=== PATIENT | male | born 1960 | race Caucasian/White ===

== ENCOUNTER 2016-12-14 11:53 | Inpatient (IN) | payer MEDICAID, OTHER ==
[~2016-12-14] VITALS: Ht 175.3 cm; Wt 66.2 kg
[2016-12-14] VITALS (8 sets, daily range): BP systolic 117–133; BP diastolic 62–81; PULSE 82–99; RESP 12–19; O2SAT 95–100
[2016-12-14] MEDS ORDERED: Thiamine Inj 100 MG, Folic Acid Inj 1 MG, Magnesium Sulfate 50% Inj 2 GM, Multivitamins... IV ONE ×5 (12:15)
--- NOTE | 2016-12-14 12:25 | ED.REPORT ---
HPI-General Illness Date of Service Dec 14, 2016 ED Provider: Adolfo Ramirez MD Patient is a 56 year old male who presents to the ED via EMS from [facility] complaining of EtOH withdrawal, dehydration, and incontinence. Patient is court ordered to the [facility] for EtOH abuse and his last drink was 2 days ago. When asked how much he normally drinks he states "about six." Unspecified allergy to lorazepam found in records. Patient is unable to give a reliable hx Per Dr Acuna,, N doctor, pt was incoherent and incontinent. PMH largely unknown, EtOH and possibly drug abuse, COPD Nursing Notes Chief Complaint: Substance Abuse Nursing Notes Reviewed: Yes Allergies: Coded Allergies: lorazepam (Verified Allergy, Unknown, 12/14/16) Scheduled B Complex with Vitamin C (Vitamin B-Complex & C) 1 Each Tablet.er 1 EACH PO DAILY Divalproex ER (Depakote ER) 500 Mg Tablet 500 MG PO BID Swallowed whole without chewing to avoid local irritation of the mouth and throat. Folic Acid (Folic Acid) 1 Mg Tablet 1 MG PO DAILY Scheduled PRN Loratadine ODT (Claritin ODT) 5 Mg Tablet 10 MG PO DAILY PRN PRN ALLERGIES General Time Seen by MD: 12:15 Chief Complaint Other (EtOH Withdrawal) Hx Obtained From: Patient, EMS Arrived By: Ambulance Onset Occurred: Onset unknown Past Medical History Past Medical History HTN Reports: COPD Smoking History Unknown if Ever Smoker Social History EtOH abuse, reportedly lives in [place] and sent to [facility] for long-term treatment. Unable to Obtain History Past medical history, Past surgical history, Family history, Smoking history, Social history, Occupation Review of Systems Unable to Obtain ROS Patient condition Physical Exam CIWA 11. Incont of urine prior to arrival. Vital Signs Vital Signs Date Time Temp Pulse Resp B/P Pulse Ox O2 Delivery O2 Flow Rate FiO2 12/14/16 18:02 89 16 131/66 96 Room Air 12/14/16 14:02 90 14 129/71 98 12/14/16 12:14 36.3 95 15 131/75 100 Room Air 12/14/16 12:08 36.7 94 12 131/75 99 Room Air Initial VS: Reviewed, Vital signs normal Head / Eyes: Atraumatic, Normocephalic Neck: Full range of motion Respiratory: No respiratory distress Cardiovascular: Regular rate & rhythm Abdomen / GI: Soft, Non-tender Extremities: Vascular intact, Neuro intact Skin: Warm, Dry Neurologic: Alert, Nonfocal General/Constitutional: Awake Tremulous, difficult historian Abdomen: Soft, Non-tender Does not appear to have ascites Neurologic: Speech NL Mental Status: Positive: Disoriented to place, Somnolent No focal neurologic deficits Interpretation & Diagnostics Lab Results Interpretation Result Diagram: 12/14/16 1350 12/14/16 1350 Test 12/14/16 12:00 12/14/16 13:50 12/14/16 14:00 12/14/16 16:48 Hold Urine Received (Received) White Blood Count 5.9th/mm3 (3.8-10.1) Red Blood Count 4.63mil/mm3 (4.40-5.80) Hemoglobin 14.5g/dL (13.8-17.2) Hematocrit 41.6% (41.0-50.0) Mean Corpuscular Volume 89.8fL (81-100) Mean Corpuscular Hemoglobin 31.3pg (27.0-35.0) Mean Corpuscular Hemoglobin Concent 34.9% (32.0-37.0) Red Cell Distribution Width 14.4% (12.3-15.4) Platelet Count 114bil/L (150-400) Neutrophils (%) (Auto) 59.5% (40-74) Lymphocytes (%) (Auto) 17.3% (14-46) Monocytes (%) (Auto) 16.4% (4-12) Eosinophils (%) (Auto) 5.6% (0-5) Basophils (%) (Auto) 0.5% (0-3) Sodium Level 133mEq/L (134-144) Potassium Level 3.6mEq/L (3.5-5.2) Chloride Level 91mEq/L (97-108) Carbon Dioxide Level 21mmol/L (18-29) Blood Urea Nitrogen 9mg/dL (6-24) Creatinine 0.42mg/dL (0.76-1.27) Estimat Glomerular Filtration Rate 223mL/min (>59) Glucose Level 87mg/dL (60-99) Calcium Level 9.8mg/dL (8.5-10.1) Total Bilirubin 1.1mg/dL (0.0-1.2) Aspartate Amino Transf (AST/SGOT) 36U/L (0-50) Alanine Aminotransferase (ALT/SGPT) 30U/L (0-44) Alkaline Phosphatase 103U/L (25-150) Total Protein 7.6g/dL (6.4-8.4) Albumin 3.9g/dL (3.4-5.0) Lipase 24U/L (13-60) Alcohols < 10mg/dL (0-10) Hold Purple Top Tube Received (Received) Prothrombin Time 10.0sec (8.1-12.5) Prothromb Time International Ratio 0.94ratio Hold Blue Top Tube Received (Received) Hold Red Top Tube Received (Received) Hold Mays Top Tube Received (Received) Valproic Acid (Depakene) Level 25ug/mL (50-125) Ammonia 66ug/dL (18-53) Re-Eval/Medical Decision Med Decision/Clinical Course 56-year-old male with a significant history of alcohol abuse. Sent from [facility] secondary to confusion tremors concern for dehydration. Patient appears to be to confused and unable to care for himself for that environment. I noted a history of reported nonspecific allergy to lorazepam however with a CIWA score of 11 to get a single dose of IV diazepam which she tolerated. Tremors are improved, he is somnolent but arousable. Ammonia is mildly elevated, we will start lactulose and order coagulation studies. Time of Eval: 17:41 Re-Evaluation/Progress Note: Somonlent, arouses to voice. Consultation : Referral / Consult Name: Beckie Portillo DO Consulted With: Hospitalist Material Expeditor: Accepts admit Discharge & Departure Primary Impression: Alcohol withdrawal Complication of substance-induced condition: with delirium Qualified Code: F10.231 - Alcohol dependence with withdrawal delirium Disposition: ADMITTED TO HOSPITAL Scribe Attestation Portions of this note were transcribed by La Frey. I, Dr. Ramirez personally performed the history, physical exam and medical decision-making; I reviewed and confirmed the accuracy of the information in the transcribed note. Signed by: La Frey 12/14/16, 1517 Adolfo Ramirez MD Dec 14, 2016 12:25 LA FREY Dec 14, 2016 13:01
[2016-12-14 14:05] LABS: BASOPHILS % (AUTO) 0.5 % (0-3); EOSINOPHILS % (AUTO) 5.6 % (0-5); MONOCYTES % (AUTO) 16.4 % (4-12); Mean Corpuscular Hemoglobin 31.3 pg (27.0-35.0); Mean Corpuscular Volume 89.8 fL (81-100); NEUTROPHILS % (AUTO) 59.5 % (40-74); Platelet Count 114 bil/L (150-400)
[2016-12-14 14:36] LABS: Lipase 24 U/L (13-60)
--- NOTE | 2016-12-14 17:24 | DRSVH ---
PROCEDURE: CT BRAIN WITHOUT CONTRAST ([id number]) INDICATIONS: decreased mental status TECHNIQUE: Noncontrast 4.5 mm thick angled axial sections acquired from the foramen magnum to the vertex, with c oronal reformats. COMPARISON: None. FINDINGS: Image quality: Excellent. CSF spaces: Basal cisterns are patent. No extra-axial fluid collections. The ventricles are symmet maxi in size and shape. Brain: No intracranial bleeds or masses. There is marked cerebral volume loss for age, with resulta nt ventricular and sulcal prominence. There are extensive periventricular and deep white matter benchroom shop optician jennifer small vessel ischemic changes for patient age. There is intracranial internal carotid artery ath erosclerosis. Skull and face: Calvarium and visualized facial bones appear intact, without suspicious lesions. Sinuses: Visualized sinuses and mastoids are clear. IMPRESSION: 1. No acute intracranial findings. 2. Marked volume loss and deep white matter changes greater than expected for patient age, likely ass ociated with microvascular ischemia. Dictated by: Giovanna Mccabe M.D. on 12/14/2016 at 17:21 Approved by: Giovanna Mccabe M.D. on 12/14/2016 at 17:23
[2016-12-14] MEDS ORDERED: Lactulose 20 Gm/30 mL 30 mL Syrup PO ONE (17:45)
[2016-12-14] MEDS ORDERED: VITA1TAB47 PO (17:51)
[2016-12-14] MEDS ORDERED: LORA5TAB8 PO (17:51)
[2016-12-14] MEDS ORDERED: FOLI1TAB18 PO (17:51)
[2016-12-14] MEDS ORDERED: DEP500A PO (17:51)
[2016-12-14] MEDS ORDERED: DEP500ER PO (17:52)
[2016-12-14 18:02] LABS: INR 0.94 ratio
[2016-12-14] MEDS ORDERED: Alum-Mag Hydrox-Simeth 30 mL Suspension PO PRN ×2 (18:20→19:45)
[2016-12-14] MEDS ORDERED: Ondansetron 2 mg/mL 2 mL Inj IVPUSH PRN ×2 (18:20→19:45)
[2016-12-14 18:24] LABS: APPEARANCE,URINE CLEAR (CLEAR,HAZY); COLOR,URINE DARK YELLOW (YELLOW); OCCULT BLOOD,URINE NEGATIVE (NEGATIVE); PH,URINE 6.5 (5.0-8.0)
--- NOTE | 2016-12-14 18:33 | DRSVH ---
PROCEDURE: X-RAY CHEST ONE VIEW, PORTABLE ([id number]) INDICATIONS: confusion, alcohol withdrawal TECHNIQUE: One view of the chest was acquired. COMPARISON: None. FINDINGS: Surgical changes and devices: None. Lungs and pleura: No pleural effusions or pneumothorax. Lungs are clear. Mediastinum: Mediastinal contours appear normal. Heart size is normal. Bones and chest wall: No suspicious bony lesions. Overlying soft tissues appear unremarkable. IMPRESSION: No acute cardiopulmonary findings. Dictated by: Giovanna Mccabe M.D. on 12/14/2016 at 18:32 Approved by: Giovanna Mccabe M.D. on 12/14/2016 at 18:32
[2016-12-14] MEDS ORDERED: Polyethylene Glycol (PEG) 17 Gm Powder PO PRN (19:45)
[2016-12-14] MEDS: 0.9% Sodium Chloride 1,000 ML IV SCH (21:30)
--- NOTE | 2016-12-14 23:24 | PCM.HPMED ---
Subjective Date of Service Dec 14, 2016 Primary Provider: Admitting Physician: Siva Fernando MD Primary Care Physician: [facility] Attending Physician: Siva Fernando MD Chief Complaint: Alcohol withdrawal History of Present Illness: Willy Pace is a 56 year old man with past medical history significant for rheumatoid arthritis and alcoholism who presented to the [facility] ED from [facility] rehabilitation due to worsening mental status. Patient is currently altered and unable to give a good comprehensive history. Per report the patient was seen by Dr. Acuna reported that the patient was incoherent and incontinent of urine. Patient appeared ill and needed to be evaluated on an inpatient hospital-based setting. There is some mention of an allergy to lorazepam however the patient is unable to clarify this allergy. Per report the patient's last drink was 2 days ago. In the emergency department his vital signs were stable. He was treated with 5 mg of Valium and given a banana bag. Review of Systems: A comprehensive review systems could not be performed due to the patient's altered mental status. Allergies Coded Allergies: lorazepam (Verified Allergy, Unknown, 12/14/16) Home Medications ED report: Depakote 500 mg by mouth twice a day Folic acid B complex PMH Hypertension COPD Rheumatoid arthritis Alcohol abuse Surgical History Unable to obtain due to patient's altered mentation Family History Unable to obtain due to patient's altered mentation Social History Hx Alcohol Use: Yes Hx Tobacco Use: Yes Smoking Status: Current Every Day Smoker Exam Vital Signs Vital Sign - Last Date Time Temp Pulse Resp B/P Pulse Ox O2 Delivery O2 Flow Rate FiO2 12/14/16 19:46 99 12/14/16 19:44 39.9 19 133/81 97 Room Air Exam General: Disheveled man appearing stated age in a hospital bed in no acute distress HEENT: Normocephalic, atraumatic. External ears without defect. Pupils equal, round, and reactive to light and accommodation. Anicteric sclerae, moist conjunctivae, and no lid lag. Oropharynx free of erythema and cobble stoning with moist mucosa. Neck: Supple with full range of motion. No jugular venous distension. No bruits. No lymphadenopathy or thyromegaly. Cardiovascular: Regular rate and rhythm with no murmurs, rubs, or gallops appreciated Pulmonary: Clear to auscultation bilaterally with no crackles, wheezes, or rhonchi. Normal respiratory effort with no use of accessory muscles. Abdomen: Bowel tones present. Soft, mildly tender diffusely, nondistended. No hepatosplenomegaly or masses appreciated. Extremities: Clubbing of bilateral hands, with notable erythema and edema of bilateral hands left slightly worse than right. Per patient this is chronic for him and he has had this for several years. Skin: Normal temperature, turgor, and texture; no rash, ulcers, or subcutaneous nodules appreciated. Neurological: Cranial nerves grossly intact. Able to do a thorough neurological assessment due to patient's altered mental status Psychiatric: Flat affect, oriented to self but not to situation. Lab and Diagnostics Result Diagram: 12/14/16 1350 12/14/16 1350 X-Rays, CTs and MRIs CT BRAIN WITHOUT CONTRAST IMPRESSION: 1. No acute intracranial findings. 2. Marked volume loss and deep white matter changes greater than expected for patient age, likely associated with microvascular ischemia. Dictated by: Giovanna Mccabe M.D. on 12/14/2016 at 17:21 X-RAY CHEST ONE VIEW, PORTABLE IMPRESSION: No acute cardiopulmonary findings. Dictated by: Giovanna Mccabe M.D. on 12/14/2016 at 18:32 Assessment & Plan Willy Pace is a 56 year old man with past medical history significant for rheumatoid arthritis and alcoholism who presented to the [facility] ED from [facility] rehabilitation due to worsening mental status. Alcohol withdrawal, present on admission, active - Given banana vein the ED. - Continue daily thiamine supplementation - Initiate patient on CIWA protocol - paste worker consultation in a.m. - Nothing by mouth while encephalopathic Seizure disorder present on admission, active - Patient is on Depakote chronically so we will continue that we will try to establish a history. CODE STATUS: Full code Patient is admitted under inpatient status with expected length of stay greater than 2 midnights due to severity of presenting symptoms, risk of adverse event, and complexity of treatment plan. Beckie Portillo DO Dec 14, 2016 22:18
[2016-12-14] MEDS: Heparin 5,000 Unit/mL Inj SUBQ SCH (23:46)
--- NOTE | 2016-12-15 05:57 | NUR ---
Admit Pt arrived to [facility] from ED. Pt very drowsy, but able to arouse. Pt states he is wheelchair at baseline and is unable to walk and does not know why. Pt was slid from gurney to bed. Skin check performed, med rec completed by admit nurse, admission completed, Pt A&O x3, CIWA of 11, 5mg Valium given. Pt appropriate and cooperative with care. VSS and Tele SR
[2016-12-15 09:45] VITALS: BP 136/83; PULSE 79; RESP 18; O2SAT 96
[2016-12-15] MEDS: Multivit-Miner-Folic Acid-Iron Tablet PO SCH (10:14)
[2016-12-15] MEDS: Divalproex (QD) 500 mg ER24 Tablet PO SCH ×2 (10:14→20:44)
[2016-12-15] MEDS: 0.9% Sodium Chloride 1,000 ML IV SCH ×2 (10:15→20:44)
[2016-12-15] MEDS: Thiamine Inj 100 MG in 0.9% Sodium Chloride 100 ML IV SCH (10:15)
[2016-12-15] MEDS: Heparin 5,000 Unit/mL Inj SUBQ SCH ×2 (10:15→16:58)
[2016-12-15 10:22] VITALS: PULSE 80
[2016-12-15 12:38] VITALS: BP 129/84; PULSE 81; RESP 18; O2SAT 98
--- NOTE | 2016-12-15 12:52 | PCM.PNMED ---
Subjective Date of Service Dec 15, 2016 Subjective Patient was on CIWA protocol pt was drowsy, but interactive AAOX2, doesn't know why he is in the hospital. c/o chill, denied fever, cough, sputum, diarrhea mildly anxious. v/s noted fever 39.9at 8pm last night, no more fever Exam Vital Signs Vital Sign - Last Date Time Temp Pulse Resp B/P Pulse Ox O2 Delivery O2 Flow Rate FiO2 12/15/16 10:22 80 12/14/16 23:28 36.8 18 130/80 95 Room Air Intake and Output 12/14/16 12/14/16 12/15/16 Cumulative From/Thru 15:00 23:00 07:00 12/14/16 12:05 - 12/15/16 06:04 Intake Total 1635 ml 1635 ml Output Total 650 ml 375 ml 1025 ml Balance -650 ml 1260 ml 610 ml Intake Oral 200 ml 200 ml IV Total 1435 ml 1435 ml Output Urine Total 650 ml 375 ml 1025 ml # Voids 1 1 # Bowel Movements 0 0 Exam NAD, comfortably laying down on the bed mild tongue fasciculation, mild tremors on extended arms no JVD, MMM, no LAD RRR, nl s1, s2 no mrg CTAB, no w,c S,ND,NT,normoactive BS+ warm, no edema, pulses 2/2 IVs and Medications Medications Reviewed: Medications were reviewed in detail Lab and Diagnostics Result Diagram: 12/14/16 1350 12/14/16 1350 X-Rays, CTs and MRIs CT BRAIN WITHOUT CONTRAST IMPRESSION: 1. No acute intracranial findings. 2. Marked volume loss and deep white matter changes greater than expected for patient age, likely associated with microvascular ischemia. Dictated by: Giovanna Mccabe M.D. on 12/14/2016 at 17:21 X-RAY CHEST ONE VIEW, PORTABLE IMPRESSION: No acute cardiopulmonary findings. Dictated by: Giovanna Mccabe M.D. on 12/14/2016 at 18:32 Assessment & Plan Willy Pace is a 56 year old man with past medical history significant for rheumatoid arthritis and alcoholism who presented to the [facility] ED from [facility] rehabilitation due to worsening mental status. Alcohol withdrawal, present on admission, active, -minimal CIWA score, no autonomic instability, no seizures observed -s/p bnana vein the ED, continue oral hydration liberally - Continue daily thiamine supplementation - Initiate patient on CIWA protocol acute encephalopathy, POA, metabolic with etoh WD/intoxication -AAOx2, seems at baseline MS, pt cannot remember the details -neurochecks q4h, if any changes with high fever, consider FUNERAL WORKERS infection Episode of fever, 39.9 on 12/14, no clear source of infection, will get BCX today , monitor fever curve, Seizure disorder present on admission, active, - Patient is on Depakote chronically, resume 500mg bid CODE STATUS: Full code dispo: likely 1-2more days, back to [facility] rehabilitation Time spent 35min Nan Rizvi MD Dec 15, 2016 11:14
--- NOTE | 2016-12-15 15:00 | NUR ---
Social Work Note: Screen Note/Multidisciplinary Rounds Data& Assessment: EMR reviewed. Pt was discussed in AM rounds. Per MD pt is not medically ready for discharge at this time. Pt is going through withdrawal from ETOH. Willy Pace is a 56 year old male admitted on 12/14/2016 for ETOH w/d. Per ED summary notes, pt was sent from [facility] inpt rehab where he was there for court ordered treatment. Pt is originally from [place] and goes to the [facility] clinic for primary care. Pt has VA insurance coverage with [facility] Medicaid supplement. SW to follow up with [facility] inpt rehab to coordinate pt return. SW to continue to follow. Plan: Anticipated discharge back to [facility] intpt rehab pending medical clearance from ETOH withdrawal. SW to follow up with [facility] inpt rehab to coordinate pt return. SW to continue to follow. KASANDRA Cueva
[2016-12-15 16:08] VITALS: BP 139/86; PULSE 83; RESP 19; O2SAT 98
--- NOTE | 2016-12-15 19:52 | NUR ---
Mentation/Drowsy pt this am was very drowsy, demanding to leave him alone. Able to wake pt up a little more, and assess him. Pt Alert to self, knows he is in a hospital and knows month and year however unable to tell me the date. Pt reoriented to time and place. Ciwa score has been 1-2 through the day. Report given to oncoming RN.
[2016-12-15 20:37] VITALS: BP 125/80; PULSE 73; PULSE 81; RESP 18; O2SAT 97
[2016-12-15 23:43] VITALS: BP 137/79; PULSE 71; RESP 18; O2SAT 96
[2016-12-16] VITALS (9 sets, daily range): BP systolic 142–176; BP diastolic 84–98; PULSE 68–84; RESP 16–19; O2SAT 96–99
[2016-12-16] MEDS: 0.9% Sodium Chloride 1,000 ML IV SCH (01:42)
[2016-12-16 03:15] LABS: BASOPHILS % (AUTO) 1.6 % (0-3); EOSINOPHILS % (AUTO) 3.9 % (0-5); Mean Corpuscular Hemoglobin 31.2 pg (27.0-35.0); Mean Corpuscular Volume 92.4 fL (81-100); NEUTROPHILS % (AUTO) 23.3 % (40-74); Platelet Count 108 bil/L (150-400)
[2016-12-16 04:32] LABS: Magnesium 1.4 mg/dL (1.6-2.6); Phosphorus 3.8 mg/dL (2.5-4.9)
--- NOTE | 2016-12-16 04:47 | NUR ---
LOC/CIWA Pt oriented to self, place but can be forgetful of date and times. He needs some reorientation with understanding noted. He was awake and able to express needs and wants. He gets anxious especially about getting his Physical therapy "rehabilitation" getting done. CIWA 4-5. Telemetry SR in 70s.
[2016-12-16] MEDS ORDERED: Magnesium Sulf 2 Gm/50mL Water 2 GM in IV Premix 1 EACH IV ONE ×2 (04:55→07:15)
[2016-12-16] MEDS: Divalproex (QD) 500 mg ER24 Tablet PO SCH ×2 (08:36→21:04)
[2016-12-16] MEDS: Multivit-Miner-Folic Acid-Iron Tablet PO SCH (08:36)
[2016-12-16] MEDS: Heparin 5,000 Unit/mL Inj SUBQ SCH ×4 (08:37→23:52)
[2016-12-16] MEDS: Thiamine Inj 100 MG in 0.9% Sodium Chloride 100 ML IV SCH (08:37)
--- NOTE | 2016-12-16 11:01 | PCM.PNMED ---
Subjective Date of Service Dec 16, 2016 Subjective pt is more lucid and conversive today, AAOx3, cannot remember what happened yesterday CIWA2 this AM, still has mild tremors denied WILD, n,v AH,VH Exam Vital Signs Vital Sign - Last Date Time Temp Pulse Resp B/P Pulse Ox O2 Delivery O2 Flow Rate FiO2 12/16/16 08:45 19 12/16/16 08:43 36.7 73 152/98 97 Room Air Intake and Output 12/15/16 12/15/16 12/16/16 Cumulative From/Thru 15:00 23:00 07:00 12/14/16 12:05 - 12/16/16 05:37 Intake Total 1996 ml 1813 ml 5444 ml Output Total 600 ml 1900 ml 3525 ml Balance 1396 ml -87 ml 1919 ml Intake Oral 720 ml 900 ml 1820 ml IV Total 1276 ml 913 ml 3624 ml Output Urine Total 600 ml 1900 ml 3525 ml # Voids 1 # Bowel Movements 0 0 0 Exam NAD, comfortably laying down on the bed very mild tremors on extended arms no JVD, MMM, no LAD RRR, nl s1, s2 no mrg CTAB, no w,c S,ND,NT,normoactive BS+ warm, no edema, pulses 2/2 IVs and Medications Medications Reviewed: Medications were reviewed in detail Lab and Diagnostics Result Diagram: 12/16/16 0255 12/16/16 0255 X-Rays, CTs and MRIs CT BRAIN WITHOUT CONTRAST IMPRESSION: 1. No acute intracranial findings. 2. Marked volume loss and deep white matter changes greater than expected for patient age, likely associated with microvascular ischemia. Dictated by: Giovanna Mccabe M.D. on 12/14/2016 at 17:21 X-RAY CHEST ONE VIEW, PORTABLE IMPRESSION: No acute cardiopulmonary findings. Dictated by: Giovanna Mccabe M.D. on 12/14/2016 at 18:32 Assessment & Plan Willy Pace is a 56 year old man with past medical history significant for rheumatoid arthritis and alcoholism who presented to the [facility] ED from [facility] rehabilitation due to worsening mental status. Alcohol withdrawal, present on admission, active, -minimal CIWA score, no autonomic instability, no seizures observed -s/p bnana vein the ED, continue oral hydration liberally - Continue daily thiamine supplementation - continue CIWA protocol acute encephalopathy, POA, metabolic with etoh WD/intoxication -AAOx3, further imprvoement today, close to baseline MS, -neurochecks q4h, if any changes with high fever, consider INDUSTRIAL ORDER CLERK infection Episode of fever, 39.9 on 12/14, no clear source of infection, BCX 12/15, no further episode of fever, monitor fever curve Seizure disorder present on admission, active, - Patient is on Depakote chronically, resume 500mg bid CODE STATUS: Full code dispo: likely today or tomorrow, back to [facility] rehabilitation Time spent 35min Nan Rizvi MD Dec 16, 2016 11:01
--- NOTE | 2016-12-16 13:22 | NUR ---
Evaluation completed. Please go to "Notes" then click on "Assessments and Notes" (bottom left corner of screen). Then select appropriate discipline tab on top of screen.
--- NOTE | 2016-12-16 14:55 | NUR ---
Spoke with teller coordinator at [facility] and they medically discharged patient on 12/14/16. Patient has [facility] LADONNA Fajardo [phone] Updated STUDIO DIRECTOR
--- NOTE | 2016-12-16 15:35 | NUR ---
Social Work: Initial Assessment/ CD Assessment/ Multidisciplinary Rounds D: Per EMR review, pt is a 56 year old male admitted for ETOH W/d. Pt is VA insurance; pt has no additional insurance, or VA benefits. PCP is through the [facility] in [place]. NOK is pt's CM Dorian Fajardo, LADONNA, [phone]. Advanced directives not completed- pt declined information. Readmit score is high, 4/8. Pt discussed in am rounds. Pt is not medically stable and is still experiencing w/d symptoms. CD order placed to coordinate discharge back to [facility]. Order acknowledged. GERMINATION TESTING MANAGER met with the patient at bedside to discuss discharge planning and complete CD assessment. Pt states that he was at [facility] for treatment for several days but was sent to [facility] after experiencing symptoms of withdrawal. Pt states that he has not drank for a month and that he does not know how he ended up here. Pt reports a history of ETOH related seizures. Pt declined CD assessment from [facility] and states that he does not wish to go back to [facility]. Pt states that he did not know what treatment was going to be like and that he has no desire to return. Pt states that his CM through [facility] is Vika Fajardo and provided verbal consent to coordinate his return to [place]. t/c to Vika Fajardo ([phone] ; GERMINATION TESTING MANAGER spoke with loader operator supervisor, Beny ([phone])as CM is not in the office today. He states that the pt is in supportive housing in [place] at [facility]. Pt is w/c bound at baseline but is I with transfers. [facility] has 27/12 assistance for CD and MH providers who have been trying to get the pt connected with the appropriate inpatient treatment. He is disappointed to hear that the pt is being discharged from [facility] so quickly. He will alert Vika and inform her that the pt will likely be discharging home once he is medically cleared. t/c from Vika Fajardo ([phone]); she will work to coordinate pt's transportation back to [place] and will contact GERMINATION TESTING MANAGER tomorrow to confirm discharge. A: Pt who is in supportive housing in [place]. P: Anticipate pt to return to [facility] in [place] at time of discharge; GERMINATION TESTING MANAGER to continue to follow to assess for unmet needs. KASANDRA Yen Addendum: 12/16/16 at 1551 by BREEZY LINDSEY Amended: Links added.
--- NOTE | 2016-12-16 19:31 | NUR ---
CiWA pt CIWA score at 1300 was 14, 5mg Valium given, pt reassessed at about 1330, pt CIWA score 0. Pt resting quietly stating feeling better. Pt stating needing his normal dose of Depakote of 1000mg BID. Dr Rizvi made aware, no change on the order. Dr Rizzo made aware during shift changed. New order of 1000mg BID put in. Report given to oncoming RN.
[2016-12-17] VITALS (7 sets, daily range): BP systolic 144–167; BP diastolic 83–90; PULSE 62–74; RESP 16–20; O2SAT 96–99
[2016-12-17 03:13] LABS: BASOPHILS % (AUTO) 1.2 % (0-3); EOSINOPHILS % (AUTO) 2.7 % (0-5); Mean Corpuscular Hemoglobin 31.2 pg (27.0-35.0); Mean Corpuscular Volume 91.3 fL (81-100); NEUTROPHILS % (AUTO) 22.3 % (40-74); Platelet Count 143 bil/L (150-400)
[2016-12-17 03:46] LABS: Magnesium 1.6 mg/dL (1.6-2.6); Phosphorus 3.9 mg/dL (2.5-4.9)
--- NOTE | 2016-12-17 05:19 | NUR ---
HTN/Anxiety/CIWA Pt oriented x3. He is poor historian about his meds. Md aware of hypertension. Pt mentioned to staff that he takes BP meds regularly but no meds listed on his med rec. MD talked to pt about what kind of BP meds he takes. He denies taking any BP meds. Telemetry SR in 60s to 70s. Valium given for mild anxiety noted r/t BP and sleep. CIWA 0-2. Lisinopril given for HTN and Melatonin for sleep. BP this am 148/88. Pt sleeping intermittently.
[2016-12-17] MEDS: Thiamine Inj 100 MG in 0.9% Sodium Chloride 100 ML IV SCH (08:21)
[2016-12-17] MEDS: Divalproex (QD) 500 mg ER24 Tablet PO SCH (08:21)
[2016-12-17] MEDS: Multivit-Miner-Folic Acid-Iron Tablet PO SCH (08:21)
[2016-12-17] MEDS: Heparin 5,000 Unit/mL Inj SUBQ SCH (08:22)
[2016-12-17] MEDS ORDERED: DIVA500T14 PO ×2 (12:00→15:20)
[2016-12-17] MEDS ORDERED: LISI-571 PO (12:00)
--- NOTE | 2016-12-17 12:04 | PCM.DIMED ---
Discharge Instructions Date of Service Dec 17, 2016 Dates of Hospitalization Dec 14, 2016 at 18:59 Discharge Diagnosis Discharge Diagnosis acute encephalopathy, likely due to alcohol withdrawal and intoxication. Diet Discharge Diet: No restrictions Activity Discharge Activity: No restrictions Patient Instructions Patient Instructions You were hospitalized with confusion, likely related to withdrawal from alcohol. Your symptoms were improved with course of detox. Please follow up with your doctor at [place] in 2weeks. Follow-up Provider: DEBI RODRIGUEZ MD Follow-up with PCP in: 2 weeks Follow-up with Mid-level in: 2 weeks Nan Rizvi MD Dec 17, 2016 12:03
--- NOTE | 2016-12-17 12:44 | NUR ---
Discharge Transportation Update: Spoke with Vika Fajardo patient's CM at [facility] in [place] and they are short staffed today and have no one able to come up and transport the patient. She is working with her supervisor metal hanging to see if they can purchase bus ticket for patient to return home. She is concerned patient may not have proper ID for this bus ticket. Once she consults with her supervisor metal hanging she will call the [facility] cell phone Updated KASANDRA
--- NOTE | 2016-12-17 12:54 | NUR ---
Social Work: Multidisciplinary Rounds/Discharge D: Pt discussed in am rounds. Pt is medically stable for discharge home. PT was able to evaluate the pt; pt was able to walk 200 feet using his wheelchair. No concerns for pt's capacity for self-care; pt wishes to return to his home in [place] and does not want to return to [facility]. GLASS INSERTER met with the patient at bedside to discuss and confirm dcp. Pt agrees with plan to return home and confirms he does not want to go back to [facility]. Pt [place] but now states that he just prefers to use it instead of walking. Pt does not know how he will get home and provided verbal consent to speak with his CM, Vika. t/c to [facility]. She states that they do not have the staff available to pickup the patient today and that she is consulting with her cloth bleaching supervisor to determine the best way for the patient to transport. GLASS INSERTER will call her back to continue to plan transport. A: Pt who lives at home, alone with supportive MH and CD resources through [facility]. P: Anticipate pt to discharge home; transportation is barrier and being addressed with management and [facility]. KASANDRA Yen Addendum: 12/17/16 at 1556 by BREEZY CAMILO In addition to pt's [facility] benefits pt also has [facility]. Transportation has been arranged for 3:30 through [facility]. Bedside RN is attempting to review pt's medications with the patient. Pt states that he does not have the ability to refill his mediations and usually [facility] them [facility] or his CM through [facility] helps him acquire them. GLASS INSERTER spoke with Vika through [facility]. GLASS INSERTER informed her of the situation with the pt's medications and that the pt will need assistance getting his medications filled at the [facility] outpatient pharmacy. She is not sure if they will have staff available to pickup these medications. GLASS INSERTER informed her that if [facility] does not receive confirmation that they can assist with acquiring medications, the pt will likely have to stay through the weekend. She is attempting to locate someone who can pickup the medications at the outpatient pharmacy. t/c to the [facility]. Their fax # is [phone]. They are open until 10:30 tonight and are open tomorrow as well. GLASS INSERTER faxed pt's prescriptions to the [place] [facility] and is awaiting return phone call from the pt's family caseworker that they have someone who can pickup the medications. Addendum: 12/17/16 at 1603 by BREEZY CAMILO [facility] INSERTER received confirmation from the pt's CM, Vika. [facility] will go to the [place] outpatient pharmacy to pickup the pt's medications for him and deliver them to the patient [facility]. GLASS INSERTER met with the pt with bedside RN to notify him of this plan. He is very grateful for the help acquiring his medications. GLASS INSERTER informed him that if for some reason he does not get his medications, he will need to find a way to the [facility] clinic to pick them up himself and/or return to the ER if he believes he requires further medical attention. Pt agrees with this plan and is excited to discharge home.
--- NOTE | 2016-12-17 14:55 | NUR ---
DISCHARGE TRANSPORTATION: Faxed [facility] transport form to [facility] and requested 1530 quill picking machine operator in room, patient has his own wheelchair in the room. He is returning to [facility] at [address] [place] [address]. Updated CANDLE MAKING SUPERVISOR Addendum: 12/17/16 at 1619 by JULIAN HAGAN CM Medicaid transport called and patient can not be picked up until 1700. Updated CANDLE MAKING SUPERVISOR
[2016-12-17] MEDS ORDERED: LISI10TA PO (15:20)
--- NOTE | 2016-12-17 17:22 | NUR ---
Discharge The pt left the unit at 1715 with all his belongings and his packet of discharge paperwork. The pt is being transported home via [facility]. The pt verbalized understanding of all presented discharge materials, including info on new scripts and follow up appointment info. The pt left the unit A&Ox3 with [facility].
--- NOTE | 2016-12-17 21:53 | PCM.DC.MED ---
Discharge Summary Date of Service Dec 17, 2016 Dates of Hospitalization Date of Hospital Admission Dec 14, 2016 at 18:59 Date of Discharge: Dec 17, 2016 Providers: Admitting Physician: Siva Fernando MD Primary Care Physician: [facility] Attending Physician: Nan Rizvi MD Diagnosis at Time of Discharge Diagnosis at Time of Discharge acute encephalopathy, likely due to alcohol withdrawal and intoxication. seizure disorder Procedures XRay, CTs & MRIs CT BRAIN WITHOUT CONTRAST IMPRESSION: 1. No acute intracranial findings. 2. Marked volume loss and deep white matter changes greater than expected for patient age, likely associated with microvascular ischemia. Dictated by: Giovanna Mccabe M.D. on 12/14/2016 at 17:21 X-RAY CHEST ONE VIEW, PORTABLE IMPRESSION: No acute cardiopulmonary findings. Dictated by: Giovanna Mccabe M.D. on 12/14/2016 at 18:32 Brief History HPI obtained by on 12/14 Willy Pace is a 56 year old man with past medical history significant for rheumatoid arthritis and alcoholism who presented to the [facility] ED from [facility] rehabilitation due to worsening mental status. Patient is currently altered and unable to give a good comprehensive history. Per report the patient was seen by Dr. Acuna reported that the patient was incoherent and incontinent of urine. Patient appeared ill and needed to be evaluated on an inpatient hospital-based setting. There is some mention of an allergy to lorazepam however the patient is unable to clarify this allergy. Per report the patient's last drink was 2 days ago. In the emergency department his vital signs were stable. He was treated with 5 mg of Valium and given a banana bag. Hospital Course Willy Pace is a 56 year old man with past medical history significant for rheumatoid arthritis and alcoholism who presented to the [facility] ED from [facility] rehabilitation due to worsening mental status. Alcohol withdrawal pt showed mild signs of etoh withdrawal, controlled on CIWA protocol, didn't require long-acting benzodiazepine. No autonomic instability or severe confusedion suggestive of DTs observed. Patient became more oriented and alerted. Given seizure hx, Depakote was continued. Given no reported seizure prior to admission, it was unlikely etoh withdrawal seizure. pt didn't have any episode of seizure during hospitalization. pt was discharged to home on stable condition. Seizure disorder resumed 500mg bid, followed by 1g bid, d/day on 1g daily Exam Vital Signs (Last) Date Time Temp Pulse Resp B/P Pulse Ox O2 Delivery O2 Flow Rate FiO2 12/17/16 12:00 36.9 74 16 150/84 96 Room Air Exam pt was examined on the day of d/c AAOx3, no tremors, ambulating on steady gait Test 12/14/16 12:00 12/14/16 13:50 12/14/16 14:00 12/14/16 16:48 Urine Color Dark yellow (YELLOW) Urine Appearance Clear (CLEAR,HAZY) Urine pH 6.5 (5.0-8.0) Urine Specific [place] 1.015 (1.003-1.035) Urine Protein Negativemg/dL (NEG,TRACE) Urine Glucose (UA) Negativemg/dL (NEGATIVE) Urine Ketones 40mg/dL (NEGATIVE) Urine Occult Blood Negative (NEGATIVE) Urine Nitrite Negative (NEGATIVE) Urine Bilirubin Negative (NEGATIVE) Urine Urobilinogen 2.0mg/dL (NORMAL) Urine Leukocyte Esterase Negative (NEGATIVE) Urine RBC 0-2/hpf (0-2) Urine WBC 0-5/hpf (0-5) Urine Epithelial Cells None/hpf (NONE-MOD) Urine Crystals None seen (NONE SEEN) Urine Bacteria Few/hpf (NONE-FEW) Urine Hyaline Casts None/lpf (NONE) Urine Granular Casts None seen (NONE SEEN) Urine Waxy Casts None seen (NONE SEEN) Urine Red Blood Cell Casts None seen (NONE SEEN) Urine White Blood Cell Casts None seen (NONE SEEN) Urine Mucus None seen (None Seen) Urine Trichomonas None seen (NONE SEEN) Urine Yeast None (NONE SEEN) Urinalysis Comment None Urine Culture Reflexed Not indicated Hold Urine Received (Received) Lipase 24U/L (13-60) Alcohols < 10mg/dL (0-10) Hold Purple Top Tube Received (Received) Prothrombin Time 10.0sec (8.1-12.5) Prothromb Time International Ratio 0.94ratio Hold Blue Top Tube Received (Received) Hold Red Top Tube Received (Received) Hold Mays Top Tube Received (Received) Ammonia 66ug/dL (18-53) Test 12/16/16 02:55 12/17/16 02:50 Procalcitonin 0.02ng/mL (0.00-0.08) White Blood Count 5.7th/mm3 (3.8-10.1) Red Blood Count 3.56mil/mm3 (4.40-5.80) Hemoglobin 11.1g/dL (13.8-17.2) Hematocrit 32.5% (41.0-50.0) Mean Corpuscular Volume 91.3fL (81-100) Mean Corpuscular Hemoglobin 31.2pg (27.0-35.0) Mean Corpuscular Hemoglobin Concent 34.2% (32.0-37.0) Red Cell Distribution Width 13.9% (12.3-15.4) Platelet Count 143bil/L (150-400) Neutrophils (%) (Auto) 22.3% (40-74) Lymphocytes (%) (Auto) 42.1% (14-46) Monocytes (%) (Auto) 31.0% (4-12) Eosinophils (%) (Auto) 2.7% (0-5) Basophils (%) (Auto) 1.2% (0-3) Sodium Level 135mEq/L (134-144) Potassium Level 4.0mEq/L (3.5-5.2) Chloride Level 97mEq/L (97-108) Carbon Dioxide Level 25mmol/L (18-29) Blood Urea Nitrogen 7mg/dL (6-24) Creatinine 0.50mg/dL (0.76-1.27) Estimat Glomerular Filtration Rate 182mL/min (>59) Glucose Level 105mg/dL (60-99) Calcium Level 9.4mg/dL (8.5-10.1) Phosphorus Level 3.9mg/dL (2.5-4.9) Magnesium Level 1.6mg/dL (1.6-2.6) Total Bilirubin 0.6mg/dL (0.0-1.2) Aspartate Amino Transf (AST/SGOT) 21U/L (0-50) Alanine Aminotransferase (ALT/SGPT) 23U/L (0-44) Alkaline Phosphatase 84U/L (25-150) Total Protein 6.2g/dL (6.4-8.4) Albumin 3.5g/dL (3.4-5.0) Valproic Acid (Depakene) Level 71ug/mL (50-125) Discharge Medications Discharge Medications B Complex with Vitamin C (Vitamin B-Complex & C) 1 Each Tablet.er 1 EACH PO DAILY (Reported) Divalproex ER (Divalproex ER) 500 Mg Tab.er.24h 1,000 MG PO DAILY *DAILY DOSING ONLY* Swallowed whole without chewing to avoid local irritation of the mouth and throat. Prescribed by: DARLEEN HALLMAN DO Folic Acid (Folic Acid) 1 Mg Tablet 1 MG PO DAILY (Reported) Lisinopril (Lisinopril) 10 Mg Tablet 10 MG PO DAILY Prescribed by: DARLEEN HALLMAN, DO As needed Loratadine ODT (Claritin ODT) 5 Mg Tablet 10 MG PO DAILY PRN PRN ALLERGIES ( Reported) Followup Plan Disposition: home Discharge Diet: No restrictions Discharge Activity: No restrictions Patient Instructions You were hospitalized with confusion, likely related to withdrawal from alcohol. Your symptoms were improved with course of detox. Please follow up with your doctor at [place] in 2weeks. Follow-up Provider: DEBI RODRIGUEZ MD Follow-up with PCP in: 2 weeks Follow-up with Mid-level in: 2 weeks Time spent 65min Nan Rizvi MD Dec 17, 2016 21:53
== END 2016-12-17 17:10 | disposition home or self-care (01) | DRG 896 ==
LOC: SED 11:53 → EDBD 11:53 → PCC 18:59
PROVIDERS: ADMIT Internal Medicine; ATTEND Internal Medicine
DX: F10.231 Alcohol dependence with withdrawal delirium (principal); G93.41 Metabolic encephalopathy; I10 Essential (primary) hypertension; J44.9 Chronic obstructive pulmonary disease, unspecified; M06.9 Rheumatoid arthritis, unspecified; F17.210 Nicotine dependence, cigarettes, uncomplicated; G40.909 Epilepsy, unspecified, not intractable, without status epilepticus